=== PATIENT | male | born 1975 | race Asian ===

== ENCOUNTER 2018-01-13 02:03 | Emergency (ER) | payer BC, OTHER ==
[2018-01-13 02:13] VITALS: BP 131/83; PULSE 93; TEMP 97.9; BMI 30.7
--- NOTE | 2018-01-13 02:21 | PDOC ---
History of Present Illness - General Chief Complaint: Overdose Stated Complaint: OVERDOSE Time Seen by Provider: 01/13/18 02:08 - History of Present Illness Initial Comments: 01/13/18 05:14 Chief complaint: Accidental overdose History of present illness: 42 years old past medical history significant for hypertension and high cholesterol chronic back pain on hydrocodone. Patient states he was shoveling snow 2 days ago and aggravated his chronic back condition this evening pain was worse and at 10 PM took 3 tabs of 7.5/325 hydrocodone then at 11 took additional 3 tabs and at 11:30 additional 3 tabs. Patient went to bed was woken up by his to wondering why he was getting up so much explained the situation she checked the pill bottle and firm that he had taken 9 pills based on pill count. Patient then began to question whether he took 6 or 9 pills this evening called [facility] and was instructed to come to the emergency department. Patient with no complaints at this time besides his back pain which is mild/moderate persistent constant exacerbated by movement alleviated somewhat by rest. No weakness no numbness bowel or bladder incontinence. Past History - Past Medical History Allergies/Adverse Reactions: Allergies Allergy/AdvReac Type Severity Reaction Status Date / Time No Known Drug Allergies Allergy Verified 12/03/15 10:45 Home Medications: Ambulatory Orders Albuterol Sulfate Inhaler - [Ventolin HFA Inhaler -] 1 - 2 inh PO Q4H PRN #1 inhaler 03/30/14 Salmeterol/Fluticasone [Advair 250Mcg/50Mcg -] 1 inh IH BID #1 inh 03/30/14 Aspirin [Aspirin EC] 81 mg PO DAILY 05/08/15 Atorvastatin Ca [Lipitor -] 40 mg PO HS 05/08/15 Nebivolol HCl [Bystolic] 10 mg PO DAILY 01/13/18 [place]-3 Fatty Acids/Fish Oil [Fish Oil 1,000 mg Capsule] 1 each PO BID 01/13/18 Oxycodone HCl/Acetaminophen [Oxycodon-Acetaminophen 7.5-325] 1 each PO PRN 01/13 Asthma: Yes COPD: No GI Disorders: Yes (GERD) HTN: Yes Hypercholesterolemia: Yes - Immunization History Immunization Up to Date: Yes - Suicide/Smoking/Psychosocial Hx Smoking History: Never smoked Have you smoked in the past 12 months: No Hx Alcohol Use: No Drug/Substance Use Hx: No Substance Use Type: Alcohol Review of Systems - Review of Systems Comments:: 01/13/18 05:16 ROS: A complete review of 10 out of 10 review of systems is taken and is negative apart from what is previously mentioned below and in the HPI. *Physical Exam - Vital Signs Last Vital Signs Temp Pulse Resp BP Pulse Ox 97.9 F 93 H 18 131/83 99 01/13/18 02:11 01/13/18 02:11 01/13/18 02:11 01/13/18 02:11 01/13/18 02:11 ED Treatment Course - LABORATORY CBC & Chemistry Diagram: 01/13/18 02:40 01/13/18 02:40 Medical Decision Making - Medical Decision Making 01/13/18 05:16 Patient reliable historian given the congestion with opiates which delays gastric motility [facility] recommended checking Tylenol level. Patient is adamant that the max dose he may have taken was 9 pills given his total ingestion of less than 3 g. An initial Tylenol level was sent. 01/13/18 05:49 Initial acetaminophen level 19. Given time of ingestion 10 pm. And blood work roughly drawn around 2 AM this is a nontoxic dose. I advised the patient to stay for 4 hour level however patient is adamantly confident that he took at most 9 tabs equating to a total Tylenol dose of less than 3 g At this time patient asking to return home someone stay for second level which is reasonable given his confidence in total ingestion Findings, the need for follow-up, strict return instructions discussed with patient. *DC/Admit/Observation/Transfer Diagnosis at time of Disposition: Accidental overdose Qualifiers: Encounter type: initial encounter Qualified Code(s): T50.901A - Poisoning by unspecified drugs, medicaments and biological substances, accidental ( unintentional), initial encounter - Discharge Dispostion Condition at time of disposition: Stable Admit: No - Referrals Referrals: Portillo Chong MD [Primary Care Provider] - - Patient Instructions Additional Instructions: Take home medications only as prescribed. Return to ED for any concerns. Follow- up with her primary care provider in 1-2 days. - Post Discharge Activity
[2018-01-13 04:37] LABS: BASO % 0.5 % (0-2.0); HEMATOCRIT 48.7 % (35.4-49); HEMOGLOBIN 16.6 GM/dL (11.7-16.9); LYMPH % 41.2 % (8-40); MCH 31.7 pg (25.7-33.7); MCHC 34.1 g/dl (32.0-35.9); MEAN CELL VOLUME 92.9 fl (80-96); MEAN PLT VOLUME 9.8 fl (7.5-11.1); MONO % 6.9 % (3.8-10.2); NEUT % 49.4 % (42.8-82.8); PLATELET COUNT 264 K/MM3 (134-434); RBC 5.24 M/mm3 (4.00-5.60); RDW 12.6 % (11.9-15.9); WHITE BLOOD COUNT 9.8 K/mm3 (4.0-10.0)
[2018-01-13 05:04] LABS: ACETAMINOPHEN 19.827 ug/mL
[2018-01-13 13:40] LABS: ALBUMIN 4.5 g/dl (3.4-5.0); ANION GAP 20 (8-16); BLOOD UREA NITROGEN 16 mg/dL (7-18); CALCIUM 9.3 mg/dL (8.5-10.1); CHLORIDE 109 mmol/L (98-107); CO2 17 mmol/L (21-32); CREATININE 1.1 mg/dL (0.7-1.3); GLUCOSE,RANDOM 117 mg/dL (74-106); POTASSIUM 4.2 mmol/L (3.5-5.1); SGOT/AST 37 U/L (15-37); SGPT/ALT 57 U/L (12-78); SODIUM 146 mmol/L (136-145)
[2018-01-13 13:42] LABS: ALK PHOS 62 U/L (45-117); BILIRUBIN,TOTAL 0.3 mg/dL (0.2-1.0); TOT PROT 8.1 g/dl (6.4-8.2)
== END 2018-01-13 05:57 | disposition home or self-care (01) ==
LOC: FER 02:03
DX: T40.2X1A Poisoning by other opioids, accidental (unintentional), initial encounter (principal); X58.XXXA Exposure to other specified factors, initial encounter; Y93.89 Activity, other specified; Y92.9 Unspecified place or not applicable; J45.909 Unspecified asthma, uncomplicated; I10 Essential (primary) hypertension; E78.00 Pure hypercholesterolemia, unspecified; K21.9 Gastro-esophageal reflux disease without esophagitis
CPT/HCPCS: 36415; 80053; 80307; 85025; 99281-25

== ENCOUNTER 2019-03-25 00:45 | Emergency (ER) | payer BC | END 2019-03-25 01:07 | disposition left against medical advice (07) | LOC: FER 00:45 ==

== ENCOUNTER 2020-11-21 15:39 | Emergency (ER) | payer BC | END 2020-11-21 16:11 | disposition home or self-care (01) | LOC: JVIRT 15:39 | DX: Z11.52 Encounter for screening for COVID-19 (principal) | CPT/HCPCS: C9803; G2012-GT; U0003 ==

== ENCOUNTER 2021-07-16 04:34 | Day surgery (SDC) | payer BC ==
[2021-07-12 16:25] VITALS: BMI 31.5
[2021-07-16 09:31] VITALS: TEMP 98
[2021-07-16 10:27] VITALS: BP 104/65; PULSE 81
== END 2021-07-16 10:30 | disposition home or self-care (01) ==
LOC: JASU-ENDO 04:34
PROVIDERS: ATTEND Internal Medicine Gastroenterology
PROC: 0DBH8ZX Excision of Cecum, Via Natural or Artificial Opening Endoscopic, Diagnostic (ICD-10-PCS; 2021-07-16)
PROC: 0DBN8ZX Excision of Sigmoid Colon, Via Natural or Artificial Opening Endoscopic, Diagnostic (ICD-10-PCS; 2021-07-16)
PROC: 0DBP8ZX Excision of Rectum, Via Natural or Artificial Opening Endoscopic, Diagnostic (ICD-10-PCS; 2021-07-16)
PROC: 0DBB8ZX Excision of Ileum, Via Natural or Artificial Opening Endoscopic, Diagnostic (ICD-10-PCS; 2021-07-16)
PROC: 0DBL8ZX Excision of Transverse Colon, Via Natural or Artificial Opening Endoscopic, Diagnostic (ICD-10-PCS; principal; 2021-07-16 08:50)
DX: R19.4 Change in bowel habit (principal); K62.1 Rectal polyp; D12.5 Benign neoplasm of sigmoid colon; D12.3 Benign neoplasm of transverse colon; K64.8 Other hemorrhoids
CPT/HCPCS: 87045; 87046; 87177; 87209; 88305-TC

== ENCOUNTER 2022-06-21 17:54 | Emergency (ER) | payer BC ==
[2022-06-21 18:35] VITALS: BP 123/84; PULSE 85; RESP 20; TEMP 98; BMI 25.7
[2022-06-21 19:32] LABS: HEMATOCRIT 44.1 % (35.4-49); HEMOGLOBIN 16.2 G/dL (11.7-16.9); MCHC 36.7 g/dl (32.0-35.9); MEAN PLT VOLUME 8.1 fl (7.5-11.1); PLATELET COUNT 235.4 10^3/uL (134-434); RDW 14.4 % (11.9-15.9); WHITE BLOOD COUNT 7.3 10^3/uL (4.0-10.8)
[2022-06-21 19:35] LABS: PLATELET ESTIMATE ADEQUATE
[2022-06-21 19:48] LABS: INR 1.01 (0.83-1.09); PROTHROMBIN TIME (PATIENT) 11.6 SEC (9.7-13.0)
[2022-06-21 19:56] LABS: BILIRUBIN,TOTAL 0.8 mg/dl (0.2-1); CALCIUM 9.4 mg/dl (8.5-10); CREATININE 0.9 mg/dl (0.55-1.3); TOT PROT 6.9 g/dl (6.4-8.2)
== END 2022-06-21 20:24 | disposition home or self-care (01) ==
LOC: FER 17:54
DX: K62.5 Hemorrhage of anus and rectum (principal)
CPT/HCPCS: 36415; 80053; 82272; 85025; 85610; 86850; 86900; 86901; 99284-25

== ENCOUNTER 2024-01-11 05:06 | Day surgery (SDC) | payer BC ==
[2024-01-05 15:57] VITALS: BMI 27.9
[2024-01-11 13:47] VITALS: TEMP 98.2
[2024-01-11 14:18] VITALS: PULSE 80
[2024-01-11 14:19] VITALS: BP 110/71; RESP 18
== END 2024-01-11 14:22 | disposition home or self-care (01) ==
LOC: JASU-ENDO 05:06
PROVIDERS: ATTEND Internal Medicine Gastroenterology
PROC: 0DB78ZX Excision of Stomach, Pylorus, Via Natural or Artificial Opening Endoscopic, Diagnostic (ICD-10-PCS; 2024-01-11)
PROC: 0DB68ZX Excision of Stomach, Via Natural or Artificial Opening Endoscopic, Diagnostic (ICD-10-PCS; principal; 2024-01-11 12:00)
DX: R93.3 Abnormal findings on diagnostic imaging of other parts of digestive tract (principal)
CPT/HCPCS: 88305-TC; 88342-TC

== ENCOUNTER 2025-06-21 02:57 | Emergency (ER) | payer BC ==
[2025-06-21] MEDS: ALBUTEROL SO4 2.5/IPRATROPIUM 0.5 INH SOL 3 ML VIAL.NEB. NEB SCH (03:00)
[2025-06-21 03:01] VITALS: PULSE 88; TEMP 98; BMI 28.7
[2025-06-21] MEDS: predniSONE 20 MG TABLET (UD) PO ONE (03:01)
[2025-06-21] MEDS ORDERED: predniSONE 20 MG TABLET (UD) ONE (03:02)
[2025-06-21 03:17] VITALS: BP 139/89
[2025-06-21 03:41] VITALS: RESP 17
== END 2025-06-21 03:45 | disposition home or self-care (01) ==
LOC: FER 02:57
PROC: 3E0F7GC Introduction of Other Therapeutic Substance into Respiratory Tract, Via Natural or Artificial Opening (ICD-10-PCS; principal; 2025-06-21)
DX: J45.901 Unspecified asthma with (acute) exacerbation (principal); R06.02 Shortness of breath
CPT/HCPCS: 99284-25

== ENCOUNTER 2025-06-22 00:27 | Emergency (ER) | payer BC ==
[2025-06-22] MEDS: ALBUTEROL SO4 2.5/IPRATROPIUM 0.5 INH SOL 3 ML VIAL.NEB. NEB SCH (00:30)
[2025-06-22 00:32] VITALS: BMI 28.7
[2025-06-22] MEDS ORDERED: methylPREDNISolone NA SUCC 125 MG/2 ML VIAL ONE (00:40)
[2025-06-22] MEDS: SODIUM CHLORIDE 1,000 ML IV ONE (00:47)
[2025-06-22] MEDS: methylPREDNISolone NA SUCC 125 MG/2 ML VIAL IVPUSH ONE (00:48)
[2025-06-22 01:18] VITALS: TEMP 97.8
[2025-06-22 01:49] LABS: ABSOLUTE IMMATURE GRANULOCYTES 0.10 x10^3/uL (0.0-0.031); BASOPHILS # 0.03 x10^3/uL (0.01-0.08); EOSINOPHIL % 0.1 % (0.8-7.0); EOSINOPHILS # 0.01 x10^3/uL (0.04-0.54); MCHC 33.6 g/dl (32.3-36.5); MEAN CELL VOLUME 92.6 fl (79.0-92.2); MEAN PLT VOLUME 10.2 fl (9.4-12.4); MONOCYTE # 1.24 x10^3/uL (0.30-0.82); MONOCYTE % 7.9 % (5.3-12.2); RDW 13.4 % (12.1-15.9)
[2025-06-22 02:06] LABS: GLUCOSE,RANDOM 117.0 mg/dL (74-106); TOT PROT 7.5 g/dl (6.4-8.2)
[2025-06-22 02:07] LABS: CO2 23.0 mmol/L (21-32)
[2025-06-22 02:09] LABS: ALK PHOS 66.0 U/L (40-150)
[2025-06-22 02:11] LABS: SGOT/AST 63.0 U/L (5-34); SGPT/ALT 66.0 U/L (0-55)
[2025-06-22 02:12] LABS: CREATININE 0.75 mg/dL (0.55-1.3)
[2025-06-22 02:31] LABS: HCV DIAGNOSTIC IN-HOUSE W/RFLX NON-REACTIVE (NONREACTIVE); HIV INTERPRETATION NEGATIVE (NEGATIVE)
[2025-06-22 03:42] VITALS: BP 115/76; PULSE 117; RESP 16
== END 2025-06-22 03:46 | disposition home or self-care (01) ==
LOC: FER 00:27
PROC: 3E033GC Introduction of Other Therapeutic Substance into Peripheral Vein, Percutaneous Approach (ICD-10-PCS; principal; 2025-06-22)
PROC: 3E0337Z Introduction of Electrolytic and Water Balance Substance into Peripheral Vein, Percutaneous Approach (ICD-10-PCS; 2025-06-22)
PROC: 3E0F7GC Introduction of Other Therapeutic Substance into Respiratory Tract, Via Natural or Artificial Opening (ICD-10-PCS; 2025-06-22)
DX: J45.41 Moderate persistent asthma with (acute) exacerbation (principal)
CPT/HCPCS: 36415; 71045-TC-FY; 80053; 85025; 86803; 87389; 87637-QW; 99284-25